=== PATIENT | male | born 1940 | race Hispanic/Latino ===

== ENCOUNTER → 2022-01-16 | Outpatient (CLI) | payer MEDICARE ==
[~2022-01-16] MED LIST: IOPAMIDOL 370 MG/ML 100 ML INFUS..BTL INJ ONE; SODIUM CHLORIDE 0.9% 100 ML ONE
[2022-01-16 08:38] LABS: CREATININE, SERUM 1.04 mg/dL (0.72-1.25)
== END ==
LOC: CT 07:53
PROVIDERS: ATTEND Thoracic Surgery (Cardiothoracic Vascular Surgery)
DX: I65.21 Occlusion and stenosis of right carotid artery (principal)
CPT/HCPCS: 36415; 70498; 82565; 84520; J7050; Q9967

== ENCOUNTER 2022-01-25 05:52 | Inpatient (IN) | payer MEDICARE ==
[2022-01-23 10:44] LABS: BASOPHILS % 0.4 % (0.0-1.0); EOSINOPHILS % 0.7 % (0.0-6.0); HEMATOCRIT 39.4 % (38.2-49.6); HEMOGLOBIN 12.6 g/dL (14.0-18.0); LYMPHOCYTES # (AUTO) 1.4 (1.0-3.2); LYMPHOCYTES % 24.1 % (18.0-39.1); MEAN CORPUSCULAR HEMOGLOBIN 32.4 pg (28-32); MEAN CORPUSCULAR VOLUME 101.3 fL (81-99); MONOCYTES # (AUTO) 0.4 (0.2-0.8); MONOCYTES % 6.9 % (4.4-11.3); NEUTROPHILS # (AUTO) 3.9 (2.1-6.9); NEUTROPHILS % 67.5 % (38.7-80.0); PLATELET COUNT 146 x10e3/uL (140-360); RED BLOOD COUNT 3.89 x10e6/uL (4.3-5.7); RED CELL DISTRIBUTION WIDTH 12.9 % (11.7-14.4)
[2022-01-23 10:55] LABS: PROTHROMBIN TIME 14.1 seconds (11.9-14.5)
[2022-01-23 10:56] LABS: PARTIAL THROMBOPLASTIN TIME 32.2 seconds (23.8-35.5)
[2022-01-23 10:59] LABS: ANION GAP 12.4 mmol/L (8-16); BLOOD UREA NITROGEN 16 mg/dL (7-26); BUN/CREATININE RATIO 17 (6-25); CALCIUM 9.3 mg/dL (8.4-10.2); CARBON DIOXIDE 27 mmol/L (22-29); CHLORIDE 105 mmol/L (98-107); CREATININE, SERUM 0.93 mg/dL (0.72-1.25); GLUCOSE 109 mg/dL (74-118); POTASSIUM 4.4 mmol/L (3.5-5.1); SODIUM 140 mmol/L (136-145)
[2022-01-25] VITALS (13 sets, daily range): BP systolic 122–161; BP diastolic 44–66
[~2022-01-25] VITALS: Ht 167.6 cm; Wt 75.7 kg
[~2022-01-25 05:52] MED LIST changes: +ELIQUIS5 MG PO; -IOPAMIDOL 370 MG/ML 100 ML INFUS..BTL INJ ONE; +LISINOPRIL2.5 MG PO; +METOPROLOL SUCC25 MG PO; +PRAVASTATIN SOD40 MG PO; -SODIUM CHLORIDE 0.9% 100 ML ONE
[2022-01-25] MEDS ORDERED: PROTAMINE SULFATE 10 MG/ML 5 ML VIAL ONE ×2 (06:27→07:49)
[2022-01-25] MEDS ORDERED: LIDOCAINE HCL 1% 2 ML AMP ONE (06:27)
[2022-01-25] MEDS ORDERED: SODIUM CHLORIDE 0.9% 500ML 500 ML ONE (06:28)
[2022-01-25] MEDS ORDERED: HEPARIN SOD (PORCINE) 1000 UNIT/ML 30ML ONE (06:28)
[2022-01-25] MEDS ORDERED: MUPIROCIN 2% OINT 22 GM TUBE ONE (06:28)
[2022-01-25] MEDS ORDERED: THROMBIN FOR SOLN 5,000 UNIT VIAL ONE (06:28)
[2022-01-25] MEDS ORDERED: SODIUM CHLORIDE 0.9% 100 ML ONE ×2 (06:29→08:03)
[2022-01-25] MEDS ORDERED: HEPARIN SOD/SOD CHLORIDE 1,000 ML ONE (07:01)
[2022-01-25] MEDS ORDERED: NICARDIPINE HCL SOLN 10 ML ONE (07:07)
[2022-01-25] MEDS ORDERED: SODIUM CHLORIDE 0.9% INJ 10 ML VIAL ONE (07:07)
[2022-01-25] MEDS ORDERED: NITROGLYCERIN/D5W 200 MCG/ML 0 ML ONE (07:08)
[2022-01-25] MEDS ORDERED: LIDOCAINE HCL (LTA) 4 ML SOLN ONE (07:09)
[2022-01-25] MEDS ORDERED: HEPARIN SOD (PORCINE) 5,000 UNIT/ML VIAL ONE (07:48)
[2022-01-25] MEDS ORDERED: HEPARIN SOD (PORCINE) 1000 UNIT/ML SDV ONE (07:49)
[2022-01-25] MEDS ORDERED: DEXMEDETOMIDINE HCL 2 ML ONE (08:03)
[2022-01-25] MEDS ORDERED: FENTANYL CITRATE/PF 100MCG/2 ML INJ ONE (11:13)
[2022-01-25 11:22] LABS: BASOPHILS % 0.1 % (0.0-1.0); EOSINOPHILS % 0.2 % (0.0-6.0); HEMATOCRIT 35.7 % (38.2-49.6); HEMOGLOBIN 11.3 g/dL (14.0-18.0); LYMPHOCYTES # (AUTO) 1.1 (1.0-3.2); LYMPHOCYTES % 12.5 % (18.0-39.1); MEAN CORPUSCULAR HEMOGLOBIN 31.8 pg (28-32); MEAN CORPUSCULAR HGB CONC 31.7 g/dL (31-35); MEAN CORPUSCULAR VOLUME 100.6 fL (81-99); MONOCYTES # (AUTO) 0.3 (0.2-0.8); MONOCYTES % 3.2 % (4.4-11.3); NEUTROPHILS # (AUTO) 7.3 (2.1-6.9); NEUTROPHILS % 83.7 % (38.7-80.0); PLATELET COUNT 107 x10e3/uL (140-360); RED BLOOD COUNT 3.55 x10e6/uL (4.3-5.7)
[2022-01-25] MEDS ORDERED: HYDRALAZINE HCL 20 MG/ML VIAL ONE (11:24)
[2022-01-25] MEDS ORDERED: LABETALOL HCL 5 MG/ML 20ML VIAL IV PRN (11:45)
[2022-01-25] MEDS ORDERED: ONDANSETRON HCL 4 MG ORAL DISINTEGRATING TAB PO PRN (11:45)
[2022-01-25] MEDS ORDERED: HYDROCODONE/APAP 5MG-325MG TAB PO PRN (11:45)
[2022-01-25] MEDS ORDERED: Morphine 2mg Syringe 2 MG/ML SYR IV PRN (11:45)
[2022-01-25 11:48] LABS: ANION GAP 14.9 mmol/L (8-16); CALCIUM 8.4 mg/dL (8.4-10.2); CREATININE, SERUM 0.82 mg/dL (0.72-1.25); POTASSIUM 3.9 mmol/L (3.5-5.1)
[2022-01-25] MEDS ORDERED: HYDROMORPHONE 1MG/1ML INJ ONE (13:51)
[2022-01-25] MEDS: SODIUM CHLORIDE 0.9% 1000ML 1,000 ML IV SCH ×3 (16:45→23:46)
[2022-01-25] MEDS ORDERED: POVIDONE IODINE 0.05% 0.05 % ML PO ONE (17:11)
[2022-01-25] MEDS ORDERED: ROCURONIUM BROMIDE 10 MG/ML 5ML VIAL IV ONE (17:11)
[2022-01-25] MEDS ORDERED: DEXAMETHASONE SOD PHOS INJ 4 MG/ML SDV ONE (17:11)
[2022-01-25] MEDS ORDERED: EPHEDRINE SULFATE INJ 50 MG/ML VIAL ONE (17:11)
[2022-01-25] MEDS ORDERED: PHENYLEPHRINE HCL 1% 10 MG/ML VIAL ONE (17:11)
[2022-01-25] MEDS ORDERED: PROPOFOL IV EMULSION 10 MG/ML 20 ML VIAL ONE (17:11)
[2022-01-25] MEDS ORDERED: LIDOCAINE HCL 2% LOCAL INJ 5 ML SDV VIAL INJ ONE (17:11)
[2022-01-25] MEDS ORDERED: ONDANSETRON HCL INJ 2MG/ML 2ML 2 MG/ML VIAL ONE (17:11)
[2022-01-25] MEDS ORDERED: NEOSTIGMINE 1 MG/ML 10ML VIAL ONE (17:11)
[2022-01-25] MEDS ORDERED: GLYCOPYRROLATE INJ 0.2 MG/ML VIAL ONE (17:11)
[2022-01-25] MEDS ORDERED: SEVOFLURANE INHAL SOLN 250 ML PEN BTL ONE (17:11)
[2022-01-26] VITALS (17 sets, daily range): BP systolic 124–201; BP diastolic 44–74
[2022-01-26 04:55] LABS: BASOPHILS % 0.1 % (0.0-1.0); HEMATOCRIT 34.2 % (38.2-49.6); LYMPHOCYTES # (AUTO) 1.1 (1.0-3.2); LYMPHOCYTES % 9.5 % (18.0-39.1); MEAN CORPUSCULAR HEMOGLOBIN 32.3 pg (28-32); MEAN CORPUSCULAR HGB CONC 32.2 g/dL (31-35); MEAN CORPUSCULAR VOLUME 100.3 fL (81-99); MONOCYTES # (AUTO) 0.6 (0.2-0.8); MONOCYTES % 5.3 % (4.4-11.3); NEUTROPHILS % 84.7 % (38.7-80.0); PLATELET COUNT 124 x10e3/uL (140-360); RED BLOOD COUNT 3.41 x10e6/uL (4.3-5.7); RED CELL DISTRIBUTION WIDTH 13.2 % (11.7-14.4)
[2022-01-26 05:19] LABS: ANION GAP 12.3 mmol/L (8-16); CREATININE, SERUM 0.84 mg/dL (0.72-1.25); POTASSIUM 4.3 mmol/L (3.5-5.1)
[2022-01-26] MEDS ORDERED: ENOXAPARIN SOD INJ 40 MG/0.4 ML SYR SC SCH (09:00)
[2022-01-26] MEDS ORDERED: ACETAMIN-CODE12.5 ML PO (14:16)
[2022-01-27] MEDS ORDERED: APIXABAN 5 MG TABLET PO SCH (09:00)
== END 2022-01-26 15:20 | disposition home or self-care (01) | DRG 39 ==
LOC: OR 05:52 → PACU V 11:57 → ICU 14:17
PROVIDERS: ADMIT Thoracic Surgery (Cardiothoracic Vascular Surgery); ATTEND Thoracic Surgery (Cardiothoracic Vascular Surgery)
PROC: 03UH0JZ Supplement Right Common Carotid Artery with Synthetic Substitute, Open Approach (ICD-10-PCS; 2022-01-25)
PROC: 03CH0ZZ Extirpation of Matter from Right Common Carotid Artery, Open Approach (ICD-10-PCS; principal; 2022-01-25 07:54)
DX: I65.21 Occlusion and stenosis of right carotid artery (principal); N40.0 Benign prostatic hyperplasia without lower urinary tract symptoms; Z20.822 Contact with and (suspected) exposure to COVID-19; I10 Essential (primary) hypertension
CPT/HCPCS: 0223U; 36415; 71046; 80048; 85025; 85610; 85730; 86850; 86900; 86920; 88304; 88311; 93005; C1768; J0360; J0690; J1100; J1170; J1644; J1650; J2001; J2370; J2405; J2710; J2720; J3010; J7030; J7040; J7050